=== PATIENT | female | born 1935 | race African-American/Black ===

== ENCOUNTER 2023-09-21 09:57 | Inpatient (IN) | payer MEDICARE ==
[2023-09-21] VITALS: BP 150/56; PULSE 81; RESP 21; TEMP 97.8
[~2023-09-21] VITALS: Ht 180.3 cm; Wt 109.8 kg
[2023-09-21 10:00] VITALS: O2SAT 97
[2023-09-21 10:29] LABS: MEAN CORPUSCULAR HEMOGLOBIN 24.4 pg (28.0-32.0); MEAN CORPUSCULAR HGB CONC 30.1 g/dL (31.0-37.0); MEAN PLATELET VOLUME 8.9 fl (7.4-10.4); PLATELET 198 x1000/uL (130-400); RED BLOOD CELL COUNT 2.16 mill/uL (4.2-5.4); RED CELL DISTRIBUTION WIDTH 19.4 % (11.6-14.6)
[2023-09-21 10:34] LABS: INR 1.1; PROTHROMBIN TIME 11.9 sec (9.6-11.0)
[2023-09-21 10:49] LABS: DIFFERENTIAL COMMENT 1
[2023-09-21 10:55] LABS: HEMATOCRIT. 17.5 % (36.0-48.0); HEMOGLOBIN. 5.3 g/dL (12.0-16.0)
[2023-09-21 11:06] LABS: ALANINE AMINOTRANSFERASE 37 IU/L (10-49); ALBUMIN 4.1 g/dL (3.2-4.8); ASPARTATE AMINOTRANSFERASE 33 IU/L (<34); BILIRUBIN TOTAL 0.4 mg/dL (0.1-1.0); CALCIUM 8.4 mg/dL (8.7-10.4); CARBON DIOXIDE 20 mEq/L (21-32); CHLORIDE 108 mEq/L (98-107); CREATININE 1.4 mg/dL (0.6-1.0); GLUCOSE 322 mg/dL (70-105); POTASSIUM 4.4 mEq/L (3.5-5.1); SODIUM 139 mEq/L (136-145); UREA NITROGEN BLOOD 37 mg/dL (9-23)
[2023-09-21 11:10] LABS: TROPONIN I HIGH SENSITIVITY 127 ng/L (3.0-34)
[2023-09-21] MEDS ORDERED: ATOR40TA70 MT (11:14)
[2023-09-21] MEDS ORDERED: ASPI-1497 MT (11:14)
[2023-09-21] MEDS ORDERED: EMPA25TA PO (11:15)
[2023-09-21] MEDS ORDERED: VALS80TA30 MT (11:16)
[2023-09-21] MEDS ORDERED: METF-874 MT (11:16)
[2023-09-21] MEDS ORDERED: LOSA25TA26 MT (11:17)
[2023-09-21] MEDS ORDERED: GABA-532 MT (11:17)
[2023-09-21] MEDS ORDERED: AMLO10TA80 MT (11:18)
[2023-09-21] MEDS ORDERED: SITA25TA3 MT (11:20)
[2023-09-21] MEDS ORDERED: CARB-121 PO (11:20)
[2023-09-21 12:33] LABS: PLATELET ESTIMATE NORMAL
[2023-09-21 12:36] LABS: ANISOCYTOSIS 2+; MICROCYTOSIS 1+
[2023-09-21] MEDS: CEFTRIAXONE 1GM/50ML 50 ML IV NR (13:30)
[2023-09-21] MEDS ORDERED: IOHEXOL-350 100 ML BOTTLE ONE (14:39)
[2023-09-21 15:19] LABS: LACTIC ACID 2.9 mmol/L (0.4-2.0)
[2023-09-21 16:38] LABS: CLARITY URINE CLEAR (CLEAR); COLOR URINE YELLOW (YELLOW); GLUCOSE URINE 3+ (NEGATIVE); KETONES URINE NEGATIVE (NEGATIVE); LEUKOCYTE ESTERASE URINE NEGATIVE (NEGATIVE); NITRITE URINE NEGATIVE (NEGATIVE); OCCULT BLOOD URINE 3+ (NEGATIVE); PROTEIN URINE 1+ (NEGATIVE); SPECIFIC GRAVITY URINE 1.035 (1.005-1.030); UROBILINOGEN URINE 0.2 E.U./dL (0.2-1.0)
[2023-09-21 16:52] LABS: BACTERIA URINE 1+; SQUAMOUS EPITHELIAL CELL URINE 1+ /lpf (RARE/1+); WBC URINE 0-2 /hpf (0-2)
[2023-09-21] MEDS ORDERED: ONDANSETRON HCL 4MG/2ML INJ IV PRN (17:45)
[2023-09-21] MEDS ORDERED: GUAIFENESIN 200MG/10ML SUGAR FREE UDC PO PRN (17:45)
[2023-09-21] MEDS ORDERED: NA PHOS,M-B/NA PHOS,DI-BA ENEMA 118ML PR PRN (18:30)
[2023-09-21] MEDS: CLONIDINE 0.1MG TABLET PO PRN (18:36)
[2023-09-21 23:00] VITALS: BP 149/62; PULSE 89; RESP 20; TEMP 99.7
[2023-09-21] MEDS: SODIUM CHLORIDE 0.45% 1,000 ML IV SCH (23:05)
[2023-09-22] VITALS (8 sets, daily range): BP systolic 118–154; BP diastolic 45–61; PULSE 74–92; RESP 18–20; TEMP 96.6–100
[2023-09-22] MEDS: ATORVASTATIN CALCIUM 40MG TABLET PO SCH (08:58)
[2023-09-22] MEDS: LOSARTAN 25 MG TABLET PO SCH (08:58)
[2023-09-22] MEDS: GABAPENTIN 300MG CAPSULE PO SCH (08:58)
[2023-09-22] MEDS: CARBIDOPA/LEVODOPA 25/100MG TABLET CR PO SCH (08:59)
[2023-09-22] MEDS: AMLODIPINE 10MG TABLET PO SCH (08:59)
[2023-09-22] MEDS ORDERED: IPRATROPIUM/ALBUTEROL 0.5-3(2.5)MG/3ML NEB HHN PRN (13:45)
[2023-09-22] MEDS ORDERED: DEXTROSE 50% WATER 50ML SYRINGE IV PRN (14:45)
[2023-09-22 16:22] LABS: BASOPHILS % 0.1 % (0.0-2.0); DIFFERENTIAL COMMENT 0; EOSINOPHILS % 2.3 % (0.0-5.0); LYMPHOCYTES % 12.6 % (20.0-50.0); MEAN CORPUSCULAR HEMOGLOBIN 25.3 pg (28.0-32.0); MEAN CORPUSCULAR VOLUME 81.6 fL (81.0-99.0); MEAN PLATELET VOLUME 9.5 fl (7.4-10.4); MONOCYTES % 7.4 % (2.0-8.0); NEUTROPHILS % 77.6 % (40.0-76.0); PLATELET 173 x1000/uL (130-400); RED BLOOD CELL COUNT 2.33 mill/uL (4.2-5.4); RED CELL DISTRIBUTION WIDTH 19.1 % (11.6-14.6)
[2023-09-22 16:34] LABS: ALANINE AMINOTRANSFERASE 8 IU/L (10-49); ALBUMIN 3.6 g/dL (3.2-4.8); ASPARTATE AMINOTRANSFERASE 34 IU/L (<34); BILIRUBIN TOTAL 0.3 mg/dL (0.1-1.0); CALCIUM 8.3 mg/dL (8.7-10.4); CARBON DIOXIDE 24 mEq/L (21-32); CHLORIDE 109 mEq/L (98-107); CREATININE 1.1 mg/dL (0.6-1.0); FERRITIN 21 ng/mL (10-291); FOLIC ACID (FOLATE) SERUM 14.97 ng/mL (>5.38); GLUCOSE 254 mg/dL (70-105); IRON 25 ug/dL (50-170); POTASSIUM 4.2 mEq/L (3.5-5.1); PROTEIN TOTAL 6.3 g/dL (6.0-8.3); SODIUM 140 mEq/L (136-145); TOTAL IRON BINDING CAPACITY 325 ug/dl (250-425); UREA NITROGEN BLOOD 28 mg/dL (9-23); VITAMIN B12 SERUM 484 pg/mL (211-911)
[2023-09-22] MEDS: BLOOD SUGAR DIAGNOSTIC STRIP TEST SCH (16:34)
[2023-09-22 16:40] LABS: HEMOGLOBIN. 5.9 g/dL (12.0-16.0)
[2023-09-22 16:44] LABS: TROPONIN I HIGH SENSITIVITY 110 ng/L (3.0-34)
[2023-09-22] MEDS: INSULIN LISPRO 100 UNITS/ML SUBCUT SCH (17:05)
[2023-09-22] MEDS ORDERED: SUCRALFATE 1 G/10 ML UDC PO SCH (17:10)
[2023-09-22] MEDS: IRON SUCROSE COMPLEX 100 MG/5 ML ML IV SCH (17:15)
[2023-09-22] MEDS: SUCRALFATE 1G TABLET PO SCH (17:32)
[2023-09-22] MEDS: ACETAMINOPHEN 325MG TABLET PO PRN (19:48)
[2023-09-22] MEDS: PANTOPRAZOLE SODIUM 40 MG/VIAL IV SCH (21:06)
[2023-09-22] MEDS: VANCOMYCIN 1,750 MG in DEXT 5% WATER 500 ML IV NR (22:49)
[2023-09-23] VITALS (10 sets, daily range): BP systolic 123–167; BP diastolic 51–82; PULSE 73–88; RESP 18–20; TEMP 98.4–99.6
[2023-09-23 07:12] LABS: PROTHROMBIN TIME 11.6 sec (9.6-11.0)
[2023-09-23 07:25] LABS: CALCIUM 7.9 mg/dL (8.7-10.4); CARBON DIOXIDE 20 mEq/L (21-32); CHLORIDE 110 mEq/L (98-107); GLUCOSE 153 mg/dL (70-105); POTASSIUM 4.3 mEq/L (3.5-5.1); SODIUM 138 mEq/L (136-145); UREA NITROGEN BLOOD 19 mg/dL (9-23)
[2023-09-23 11:27] LABS: HEMATOCRIT. 24.3 % (36.0-48.0); MEAN CORPUSCULAR HEMOGLOBIN 27.6 pg (28.0-32.0); MEAN CORPUSCULAR HGB CONC 32.8 g/dL (31.0-37.0); MEAN CORPUSCULAR VOLUME 84.3 fL (81.0-99.0); MEAN PLATELET VOLUME 8.9 fl (7.4-10.4); PLATELET 160 x1000/uL (130-400); RED BLOOD CELL COUNT 2.88 mill/uL (4.2-5.4); RED CELL DISTRIBUTION WIDTH 17.8 % (11.6-14.6)
[2023-09-23 11:30] LABS: DIFFERENTIAL COMMENT 1
[2023-09-23 11:44] LABS: WHITE BLOOD COUNT 13.9 x1000/uL (4.5-11.0)
[2023-09-23 13:41] LABS: PLATELET ESTIMATE NORMAL
[2023-09-23] MEDS: VANCOMYCIN 1GM/200ML PMX (BAXTER) IV SCH (21:17)
[2023-09-24] VITALS: BP 149/54; PULSE 81; RESP 21; TEMP 98.7
[2023-09-24 04:00] VITALS: BP 126/66; PULSE 86; RESP 21; TEMP 98.4
[2023-09-24 06:49] LABS: BASOPHILS % 0.2 % (0.0-2.0); DIFFERENTIAL COMMENT 0; EOSINOPHILS % 3.1 % (0.0-5.0); HEMATOCRIT. 28.2 % (36.0-48.0); HEMOGLOBIN. 9.1 g/dL (12.0-16.0); LYMPHOCYTES % 10.2 % (20.0-50.0); MEAN CORPUSCULAR HEMOGLOBIN 27.8 pg (28.0-32.0); MEAN CORPUSCULAR HGB CONC 32.4 g/dL (31.0-37.0); MEAN CORPUSCULAR VOLUME 85.9 fL (81.0-99.0); MEAN PLATELET VOLUME 9.2 fl (7.4-10.4); MONOCYTES % 8.2 % (2.0-8.0); NEUTROPHILS % 78.3 % (40.0-76.0); PLATELET 175 x1000/uL (130-400); RED BLOOD CELL COUNT 3.29 mill/uL (4.2-5.4); RED CELL DISTRIBUTION WIDTH 18.4 % (11.6-14.6)
[2023-09-24 06:54] LABS: PROTHROMBIN TIME 11.4 sec (9.6-11.0)
[2023-09-24 07:23] LABS: CALCIUM 8.6 mg/dL (8.7-10.4); CARBON DIOXIDE 21 mEq/L (21-32); CHLORIDE 109 mEq/L (98-107); GLUCOSE 141 mg/dL (70-105); POTASSIUM 4.4 mEq/L (3.5-5.1); SODIUM 139 mEq/L (136-145); UREA NITROGEN BLOOD 14 mg/dL (9-23)
[2023-09-24 08:00] VITALS: BP 160/55; PULSE 89; RESP 18; TEMP 98.8
[2023-09-24] MEDS ORDERED: LIDOCAINE HCL 1% 10 MG/ML 10ML VIAL ONE (11:26)
[2023-09-24] MEDS ORDERED: PROPOFOL 200MG/20ML VIAL IV ONE (11:26)
[2023-09-24] MEDS ORDERED: MEPERIDINE HCL/PF 25MG/ML CPJ IV PRN (12:00)
[2023-09-24] MEDS ORDERED: HYDROMORPHONE HCL/PF 2MG/ML CPJ IV PRN (12:00)
[2023-09-24] MEDS ORDERED: ONDANSETRON HCL 4MG/2ML INJ IV PRN (12:00)
[2023-09-24] MEDS ORDERED: LABETALOL 5MG/ML SYR 20 MG/4 ML SYRINGE IV PRN (12:00)
[2023-09-24 16:00] VITALS: BP 160/58; PULSE 83; RESP 18; TEMP 97.5
[2023-09-24] MEDS: ENOXAPARIN 120MG/0.8ML SYR SUBCUT SCH (17:09)
[2023-09-24 20:00] VITALS: BP 169/69; PULSE 89; RESP 18; TEMP 97.6
[2023-09-25] VITALS: BP 127/63; PULSE 88; RESP 18; TEMP 97.6
[2023-09-25 04:00] VITALS: BP 160/52; PULSE 78; RESP 18; TEMP 98
[2023-09-25 07:21] LABS: CALCIUM 8.2 mg/dL (8.7-10.4); CARBON DIOXIDE 22 mEq/L (21-32); CHLORIDE 108 mEq/L (98-107); GLUCOSE 143 mg/dL (70-105); POTASSIUM 4.3 mEq/L (3.5-5.1); SODIUM 138 mEq/L (136-145); UREA NITROGEN BLOOD 12 mg/dL (9-23)
[2023-09-25 08:00] VITALS: BP_SYST 135; BP_SYST 162; BP_DIAS 57; BP_DIAS 68; PULSE 82; PULSE 84; RESP 18; TEMP 98; TEMP 98.2
[2023-09-25 12:00] VITALS: BP 135/57; PULSE 82; RESP 18; TEMP 98
[2023-09-25 16:00] VITALS: BP 157/55; PULSE 79; RESP 18; TEMP 98.1
[2023-09-25 20:00] VITALS: BP 165/77; PULSE 92; RESP 20; TEMP 98.4
[2023-09-25] MEDS: TRAMADOL 50MG TABLET PO PRN (20:28)
[2023-09-25] MEDS: DOCUSATE SODIUM 100MG CAPSULE PO PRN (20:50)
[2023-09-25] MEDS ORDERED: VANCOMYCIN 1.25GM PMX (XELLIA) 250 ML IV SCH (21:00)
[2023-09-26] VITALS: BP 145/54; PULSE 90; RESP 20; TEMP 97.5
[2023-09-26 04:00] VITALS: BP 147/62; PULSE 96; RESP 20; TEMP 97.7
[2023-09-26 06:39] LABS: HEMATOCRIT. 26.5 % (36.0-48.0); HEMOGLOBIN. 8.6 g/dL (12.0-16.0); MEAN CORPUSCULAR HEMOGLOBIN 27.5 pg (28.0-32.0); MEAN CORPUSCULAR HGB CONC 32.4 g/dL (31.0-37.0); MEAN PLATELET VOLUME 9.8 fl (7.4-10.4); PLATELET 231 x1000/uL (130-400); RED BLOOD CELL COUNT 3.12 mill/uL (4.2-5.4); RED CELL DISTRIBUTION WIDTH 19.2 % (11.6-14.6); WHITE BLOOD COUNT 18.2 x1000/uL (4.5-11.0)
[2023-09-26 07:03] LABS: DIFFERENTIAL COMMENT 1
[2023-09-26 07:17] LABS: CALCIUM 8.6 mg/dL (8.7-10.4); CREATININE 1.1 mg/dL (0.6-1.0); POTASSIUM 4.4 mEq/L (3.5-5.1)
[2023-09-26 08:00] VITALS: BP 112/72; PULSE 83; RESP 18; RESP 20; TEMP 97.8
[2023-09-26 12:00] VITALS: BP 143/59; PULSE 98; RESP 18; TEMP 97.7
[2023-09-26] MEDS ORDERED: METHYLPREDNISOLONE SOD SUCC 40MG VIAL IV SCH (12:30)
[2023-09-26 13:44] LABS: ANISOCYTOSIS 2+; PLATELET ESTIMATE NORMAL
[2023-09-26] MEDS: METHYLPREDNISOLONE SOD SUCC 125MG/2ML (ACT-O-VIAL) IV NR (14:07)
[2023-09-26] MEDS ORDERED: NALOXONE HCL 0.4MG/ML VIAL IV PRN (14:15)
[2023-09-26 16:00] VITALS: BP 137/65; PULSE 83; RESP 18; TEMP 97.5
[2023-09-26 20:00] VITALS: BP 164/70; PULSE 88; RESP 18; TEMP 97.2
[2023-09-27] VITALS: BP 160/66; PULSE 79; RESP 21; TEMP 97.2
[2023-09-27 04:00] VITALS: BP 148/56; PULSE 75; RESP 21; TEMP 97.9
[2023-09-27 08:00] VITALS: BP 103/73; PULSE 75; RESP 18; TEMP 97.9
[2023-09-27 12:00] VITALS: PULSE 78; RESP 18; TEMP 97.6
[2023-09-27 16:00] VITALS: BP 150/67; RESP 18; TEMP 97.7
[2023-09-27 20:00] VITALS: BP 164/80; PULSE 82; RESP 20; TEMP 97.6
[2023-09-27 20:40] LABS: HEMATOCRIT. 25.4 % (36.0-48.0); HEMOGLOBIN. 7.8 g/dL (12.0-16.0); MEAN CORPUSCULAR HEMOGLOBIN 26.7 pg (28.0-32.0); MEAN CORPUSCULAR HGB CONC 30.8 g/dL (31.0-37.0); MEAN CORPUSCULAR VOLUME 86.6 fL (81.0-99.0); MEAN PLATELET VOLUME 9.2 fl (7.4-10.4); PLATELET 275 x1000/uL (130-400); RED BLOOD CELL COUNT 2.94 mill/uL (4.2-5.4); RED CELL DISTRIBUTION WIDTH 18.6 % (11.6-14.6); WHITE BLOOD COUNT 21.7 x1000/uL (4.5-11.0)
[2023-09-27 20:44] LABS: DIFFERENTIAL COMMENT 1
[2023-09-27 20:55] LABS: CALCIUM 8.5 mg/dL (8.7-10.4); CREATININE 1.1 mg/dL (0.6-1.0); POTASSIUM 4.4 mEq/L (3.5-5.1)
[2023-09-27 21:06] LABS: ANISOCYTOSIS 1+; PLATELET ESTIMATE NORMAL
[2023-09-28] VITALS (17 sets, daily range): BP systolic 124–183; BP diastolic 58–79; PULSE 70–93; RESP 18–20; TEMP 97–98
[2023-09-28 02:42] LABS: HEMATOCRIT. 26.1 % (36.0-48.0); HEMOGLOBIN. 8.3 g/dL (12.0-16.0); MEAN CORPUSCULAR HEMOGLOBIN 26.7 pg (28.0-32.0); MEAN CORPUSCULAR HGB CONC 31.7 g/dL (31.0-37.0); MEAN CORPUSCULAR VOLUME 84.2 fL (81.0-99.0); MEAN PLATELET VOLUME 8.9 fl (7.4-10.4); PLATELET 303 x1000/uL (130-400); RED CELL DISTRIBUTION WIDTH 18.8 % (11.6-14.6); WHITE BLOOD COUNT 21.6 x1000/uL (4.5-11.0)
[2023-09-28 02:49] LABS: DIFFERENTIAL COMMENT 1
[2023-09-28 02:59] LABS: CALCIUM 8.7 mg/dL (8.7-10.4); CARBON DIOXIDE 24 mEq/L (21-32); CHLORIDE 106 mEq/L (98-107); GLUCOSE 212 mg/dL (70-105); POTASSIUM 4.3 mEq/L (3.5-5.1); SODIUM 138 mEq/L (136-145); UREA NITROGEN BLOOD 21 mg/dL (9-23)
[2023-09-28 03:02] LABS: INR 0.9; PROTHROMBIN TIME 10.5 sec (9.6-11.0)
[2023-09-28 04:12] LABS: ALPHA FETOPROTEIN TUMOR MARKER 2.8 ng/mL (0.0-8.7)
[2023-09-28] MEDS ORDERED: LIDOCAINE HCL 1% 10 MG/ML 10ML VIAL ONE ×2 (07:09→11:22)
[2023-09-28 08:18] LABS: ANISOCYTOSIS 1+; PLATELET ESTIMATE NORMAL
[2023-09-28] MEDS ORDERED: FENTANYL CITRATE/PF 50MCG/ML 2ML VIAL ONE (11:04)
[2023-09-28] MEDS: FENTANYL CITRATE/PF 50MCG/ML 2ML VIAL IV NR (11:05)
[2023-09-28] MEDS: BISACODYL 10MG SUPP PR SCH (12:58)
[2023-09-28 18:28] LABS: HEMATOCRIT 28.8 % (36.0-48.0); HEMOGLOBIN 9.3 g/dL (12.0-16.0)
[2023-09-28] MEDS: ENOXAPARIN 120MG/0.8ML SYR SUBCUT SCH (23:38)
[2023-09-29] VITALS: BP 168/70; PULSE 76; RESP 18; TEMP 97.9
[2023-09-29 04:00] VITALS: BP 167/77; PULSE 72; RESP 17; TEMP 97
[2023-09-29 08:00] VITALS: BP 165/78; PULSE 72; RESP 20; TEMP 97.7
[2023-09-29 10:22] LABS: BASOPHILS % 0.1 % (0.0-2.0); EOSINOPHILS % 1.4 % (0.0-5.0); HEMATOCRIT. 26.8 % (36.0-48.0); HEMOGLOBIN. 8.4 g/dL (12.0-16.0); LYMPHOCYTES % 8.3 % (20.0-50.0); MEAN CORPUSCULAR HEMOGLOBIN 26.8 pg (28.0-32.0); MEAN CORPUSCULAR HGB CONC 31.4 g/dL (31.0-37.0); MEAN CORPUSCULAR VOLUME 85.3 fL (81.0-99.0); MEAN PLATELET VOLUME 8.3 fl (7.4-10.4); MONOCYTES % 7.8 % (2.0-8.0); NEUTROPHILS % 82.4 % (40.0-76.0); PLATELET 314 x1000/uL (130-400); RED BLOOD CELL COUNT 3.14 mill/uL (4.2-5.4); RED CELL DISTRIBUTION WIDTH 18.9 % (11.6-14.6); WHITE BLOOD COUNT 11.5 x1000/uL (4.5-11.0)
[2023-09-29] MEDS ORDERED: RIVA20TA MT (10:48)
[2023-09-29] MEDS ORDERED: XAR15 MT (10:48)
[2023-09-29] MEDS ORDERED: FAMO-135 MT (10:48)
[2023-09-29 11:03] LABS: CALCIUM 8.7 mg/dL (8.7-10.4); CARBON DIOXIDE 25 mEq/L (21-32); CHLORIDE 109 mEq/L (98-107); CREATININE 0.9 mg/dL (0.6-1.0); GLUCOSE 184 mg/dL (70-105); POTASSIUM 4.2 mEq/L (3.5-5.1); SODIUM 136 mEq/L (136-145); UREA NITROGEN BLOOD 17 mg/dL (9-23)
[2023-09-29 12:00] VITALS: BP 187/65; PULSE 87; RESP 18; TEMP 97.6
== END 2023-09-29 16:00 | disposition home or self-care (01) | DRG 175 ==
LOC: ER 09:57 → 8WST 15:47 → EDBEDREQTM 15:50 → EDBEDREQ 15:50 → ER 22:43
PROVIDERS: ADMIT Hospitalist; ATTEND Hospitalist
PROC: 30233N1 Transfusion of Nonautologous Red Blood Cells into Peripheral Vein, Percutaneous Approach (ICD-10-PCS; 2023-09-21)
PROC: 0DB68ZX Excision of Stomach, Via Natural or Artificial Opening Endoscopic, Diagnostic (ICD-10-PCS; principal; 2023-09-24)
PROC: 0DB78ZX Excision of Stomach, Pylorus, Via Natural or Artificial Opening Endoscopic, Diagnostic (ICD-10-PCS; 2023-09-24)
PROC: 0FB23ZX Excision of Left Lobe Liver, Percutaneous Approach, Diagnostic (ICD-10-PCS; 2023-09-28)
DX: I26.99 Other pulmonary embolism without acute cor pulmonale (principal); I21.A1 Myocardial infarction type 2; N18.6 End stage renal disease; J96.01 Acute respiratory failure with hypoxia; N17.9 Acute kidney failure, unspecified; I82.432 Acute embolism and thrombosis of left popliteal vein; I50.40 Unspecified combined systolic (congestive) and diastolic (congestive) heart failure; L03.116 Cellulitis of left lower limb; L03.115 Cellulitis of right lower limb; I42.0 Dilated cardiomyopathy; I13.2 Hypertensive heart and chronic kidney disease with heart failure and with stage 5 chronic kidney disease, or end stage renal disease; E87.20 Acidosis, unspecified; E87.1 Hypo-osmolality and hyponatremia; C78.7 Secondary malignant neoplasm of liver and intrahepatic bile duct; E11.65 Type 2 diabetes mellitus with hyperglycemia; R62.7 Adult failure to thrive; I25.5 Ischemic cardiomyopathy; K80.20 Calculus of gallbladder without cholecystitis without obstruction; Z20.822 Contact with and (suspected) exposure to COVID-19; Z99.2 Dependence on renal dialysis; K59.00 Constipation, unspecified; K44.9 Diaphragmatic hernia without obstruction or gangrene; K31.7 Polyp of stomach and duodenum; K29.70 Gastritis, unspecified, without bleeding; I25.10 Atherosclerotic heart disease of native coronary artery without angina pectoris; G20.A1 Parkinson's disease without dyskinesia, without mention of fluctuations; E87.5 Hyperkalemia; E78.5 Hyperlipidemia, unspecified; E11.649 Type 2 diabetes mellitus with hypoglycemia without coma; E11.22 Type 2 diabetes mellitus with diabetic chronic kidney disease; D63.1 Anemia in chronic kidney disease; D50.9 Iron deficiency anemia, unspecified; B02.9 Zoster without complications; Z95.810 Presence of automatic (implantable) cardiac defibrillator; Z95.5 Presence of coronary angioplasty implant and graft; Z90.710 Acquired absence of both cervix and uterus; Z86.19 Personal history of other infectious and parasitic diseases; Z68.33 Body mass index [BMI] 33.0-33.9, adult
CPT/HCPCS: 36415; 71045; 71275; 73700; 74174; 76700; 76942; 80048; 80053; 80202; 81003; 82105; 82378; 82607; 82728; 82746; 82962; 83540; 83550; 83605; 83880; 84145; 84484; 85014; 85018; 85025; 85044; 85384; 85651; 86301; 86304; 86850; 86900; 86920; 87426; 88305; 88307; 88312; 88313; 93005; 93306; 93971; 97110; 97116; 97162; 99291; C9113; J0696; J1650; J1815; J2704; J2920; J2930; J3010; J3370; J3490; J7060; P9016; Q9967